=== PATIENT | male | born 1970 | race Caucasian/White ===

== ENCOUNTER 2016-12-10 09:09 | Emergency (ER) | payer OTHER ==
[2016-12-10 09:41] VITALS: BP 136/85; PULSE 66; TEMP 98.3; BMI 25.8
[2016-12-10] MEDS ORDERED: DIPHTH,PERTUSS(ACELL),TET 0.5 ML DISP.SYRIN IM ONE (10:55)
--- NOTE | 2016-12-10 11:01 | PDOC ---
History of Present Illness - General Chief Complaint: Injury Stated Complaint: LACERATION Time Seen by Provider: 12/10/16 10:03 History Source: Patient Exam Limitations: No Limitations - History of Present Illness Initial Comments: 12/10/16 10:56 CHIEF COMPLAINT: Laceration to right first and second finger. HISTORY OF PRESENT ILLNESS: Patient is an otherwise healthy 46-year-old male states that he was at work and someone was playing around with a knife and he went to back up and hit the knife sustaining a laceration to right first and second finger. Good range of motion to fingers, there is no tendon or ligament involvement, none visible , bleeding control, tetanus not up to date. 12/10/16 11:01 Occurred: reports: this morning (5:30 AM) Severity: reports: moderate Pain Location: reports: upper extremity (right first and second finger) Modifying Factors: improves with: None Associated Symptoms (Fall): denies symptoms Past History - Past Medical History Allergies/Adverse Reactions: Allergies Allergy/AdvReac Type Severity Reaction Status Date / Time No Known Allergies Allergy Verified 12/10/16 09:35 Home Medications: Ambulatory Orders Levothyroxine [Synthroid -] 150 mcg PO DAILY 12/10/16 Thyroid Disease: Yes (HYPO) - Immunization History Immunization Up to Date: Yes - Psycho/Social/Smoking Cessation Hx Suicidal Ideation: No Smoking History: Current every day smoker Number of Cigarettes Smoked Daily: 10 Information on smoking cessation initiated: No Hx Alcohol Use: Yes ("WEEKENDS") Drug/Substance Use Hx: Yes (MARIJUANA & COCAINE) Review of Systems - Review of Systems Constitutional: No: Symptoms Reported Integumentary: Yes: Other (3 cm flap laceration to the lateral right second finger just below the PIP, superficial laceration to dorsum of right first finger above the PIP). No: Erythema Neurological: No: Paresthesia, Tingling, Tremors All Other Systems: Reviewed and Negative *Physical Exam - Vital Signs Last Vital Signs Temp Pulse Resp BP Pulse Ox 98.3 F 66 17 136/85 99 12/10/16 09:35 12/10/16 09:35 12/10/16 09:35 12/10/16 09:35 12/10/16 09:35 - Physical Exam General Appearance: Yes: Appropriately Dressed. No: Apparent Distress Integumentary: positive: Other (3 cm flap laceration to the lateral right second finger just below the PIP, 2 cm superficial laceration to dorsum of right first finger above the PIP). negative: Swelling, Ecchymosis, Bruising Neurologic: positive: Alert, Normal Mood/Affect Procedures - Laceration/Wound Repair Right Finger 2nd digit Wound Length: 2.6 to 5.0 cm Wound Explored: clean Wound's Depth, Shape: linear Irrigated w/ Saline: Yes Betadine Prep: Yes Anesthesia: 1% Lidocaine Amount of Anesthetic (ccs): 4 (digital block performed with good result) Wound Repaired With: Sutures Suture Size/Type: 5:0 Number of Sutures: 6 Layer Closure: No Progress: 12/10/16 10:59 Bacitracin, Xeroform and finger splint applied Right Finger 1st digit Wound Length: to 2.5 cm Wound Explored: clean Wound's Depth, Shape: superficial Irrigated w/ Saline: Yes Wound Repaired With: Dermabond Medical Decision Making - Medical Decision Making 12/10/16 11:00 A/P: Patient here for laceration to right first and second finger, right first finger able to be derma bonded second finger sutures placed, see procedure note , boostrix given. 12/10/16 11:01 Follow-up instructions given to patient and care instructions *DC/Admit/Observation/Transfer Diagnosis at time of Disposition: Finger laceration Qualifiers: Encounter type: initial encounter Finger: index finger Damage to nail status: without damage Foreign body presence: without foreign body Laterality: right Qualified Code(s): S61.210A - Laceration without foreign body of right index finger without damage to nail, initial encounter - Discharge Dispostion Disposition: HOME Condition at time of disposition: Good Admit: No - Referrals Referrals: Rocío Christian MD [Primary Care Provider] - - Patient Instructions Additional Instructions: Keep area clean dry and intact Keep dressing on until tomorrow If any increased bleeding through the dressing return immediately to emergency department Keep area clean dry and intact bacitracin x3 days, then let it dry out Please return in 7-10 days for suture removal. Please return immediately to emergency department with any increased redness, swelling, signs of infection
== END 2016-12-10 11:11 | disposition home or self-care (01) ==
LOC: JERFT 09:09
PROC: 0HQFXZZ Repair Right Hand Skin, External Approach (ICD-10-PCS; principal; 2016-12-10)
PROC: 3E0234Z Introduction of Serum, Toxoid and Vaccine into Muscle, Percutaneous Approach (ICD-10-PCS; 2016-12-10)
DX: S61.210A Laceration without foreign body of right index finger without damage to nail, initial encounter (principal); W26.0XXA Contact with knife, initial encounter; Y93.89 Activity, other specified; Y92.9 Unspecified place or not applicable; E03.9 Hypothyroidism, unspecified; F17.210 Nicotine dependence, cigarettes, uncomplicated
CPT/HCPCS: 90715; 99282-25

== ENCOUNTER 2017-01-13 14:42 | Emergency (ER) | payer OTHER ==
[2017-01-13 14:46] VITALS: BP 131/94; PULSE 80; TEMP 99; BMI 26.6
[2017-01-13] MEDS ORDERED: SULFAMETHOXAZOLE/TRIMETHOPRIM 800MG/160MG D.S. TABLET PO ONE (15:17)
--- NOTE | 2017-01-13 15:23 | PDOC ---
Suture Removal/Wound Check HPI - History of Present Illness Chief Complaint: Suture/Staple Removal(Here) Stated Complaint: SUTURE REMOVAL Time Seen by Provider: 01/13/17 14:58 History Source: Yes: Patient Exam Limitations: Yes: No Limitations [facility] Date of Last ED visit: 12/10/16 - Previous ED Treatment Type of procedure performed on last visit: Yes: Laceration Repair Tetanus Immunization: Yes: Given at last ED visit - Onset of Previous Treatment Date of Occurence: 12/10/16 Past History - Past Medical History Allergies/Adverse Reactions: Allergies No Known Allergies Allergy (Verified 01/13/17 14:46) Home Medications: Ambulatory Orders Levothyroxine [Synthroid -] 150 mcg PO DAILY 12/10/16 Sulfamethoxazole/Trimethoprim [Bactrim Ds -] 1 tab PO BID #19 tablet 01/13/17 General: Yes: no pertinent history - Immunization History Immunizations Up to Date: Yes - Social History Smoking Status: Current every day smoker Number of Ciarettes Per Day: 6 Suture Removal/Wound Check PE - Physical Exam Laceration/Wound Check Symptoms: reports: Redness (discharge along suture line rt. index finger,) Current Severity Level: Mild (rt. index finger) Maximum Severity Level: Mild Location of Laceration/Wound: right: Finger (index finger) Comments: 01/13/17 16:17 was able to remove 6 interrupted sutures right index finger proximal palmar aspect, There was white discharged on his along lateral aspect of suture line wound edges well approximated slight erythema along edges and tenderness, wound lateral aspect is infected, cleansed wound with betadine, NS 0.9 % dried applied tiny amount of bacitracin oint, bandaid applied *Review of Systems - Review of Systems Able to Perform ROS?: Yes Constitutional: No: Symptoms Reported HEENTM: No: Symptoms Reported Respiratory: No: Symptoms reported Cardiac (ROS): No: Symptoms Reported ABD/GI: No: Symptoms Reported : No: Symptoms Reported Integumentary: Yes: Other ([address] proximal palmar index finger) Medical Decision Making - Medical Decision Making 01/13/17 16:20 01/13/17 16:21 Patient had a laceration on his right proximal palmar index finger and right dorsal thumb sustained by a knife on 12/10/2016. Patient received 6 interrupted sutures here on 12/10/2016. Patient's tetanus was updated. Patient reports that he had been busy and did not calm the have sutures taken out when he was supposed to. He also reports that he works at [employer] and does not wear gloves and fingers were not covered. There was white discharged on his along lateral aspect of suture line wound edges well approximated slight erythema along edges and tenderness, wound lateral aspect is infected. Patient reports tenderness along wound edge laterally on index finger. SUTURE REMOVAL RT. INDEX FINGER WITH WOUND INFECTION NOTED PLAN: WOUND C & S 6 interrupted sutures removed without complication or bleeding however wound does have discharge will treat with antibiotic Bactrim DS one tab now then twice a day 10 days patient given strict wound instructions *DC/Admit/Observation/Transfer Diagnosis at time of Disposition: Visit for suture removal Laceration of right hand with infection Qualifiers: Encounter type: initial encounter Qualified Code(s): S61.411A - Laceration without foreign body of right hand, initial encounter - Prescriptions Prescriptions: Sulfamethoxazole/Trimethoprim [Bactrim Ds -] 1 tab PO BID #19 tablet - Patient Instructions Additional Instructions: CLEANSE WOUND TWICE DAILY WITH ANTIBACTERIAL SOAP, PAT DRY AND APPLY TINY AMOUNT OF BACITRACIN OINTMENT COVER WITH BANDAID DURING THE DAY AIR OUT AT NIGHT RETURN TO EMERGENCY ROOM IF ANY INCREASE IN REDNESS OR SWELLING OF FINGER OR FEVER TAKE ANTIBIOTIC PRESCRIBED UNTIL FINISHED PATIENT VOICED UNDERSTANDING OF DISCHARGE INSTRUCTIONS AND ALL QUESTIONS WERE ANSWERED
[2017-01-13] MEDS ORDERED: SULFAMETHOXAZOLE/TRIMETHOPRIM 800MG/160MG D.S. TABLET ONE (15:24)
== END 2017-01-13 15:40 | disposition home or self-care (01) ==
LOC: JERFT 14:42
DX: Z48.02 Encounter for removal of sutures (principal)
CPT/HCPCS: 87070; 87205; 99281-25

== ENCOUNTER 2017-11-01 11:38 | Emergency (ER) | payer OTHER ==
--- NOTE | 2017-11-01 11:50 | PDOC ---
History of Present Illness - History of Present Illness Initial Comments: 11/01/17 11:57 Mr. Aldridge is a 47 yo male w/ pmh of hypothyroidism who presents for evaluation s /p fall earlier today. Patient reports he was at work and fell on his left side off of a 4 or 5 foot ledge. He is currently complaining of 10/10 left sided pain. Denies any LOC or hitting his head. Reports he has also noticed a bump on his right hand today as well. The patient denies chest pain, shortness of breath, headache and dizziness. Denies fever, chills, nausea, vomit, diarrhea and constipation. Denies dysuria, frequency, urgency and hematuria. Allergies: NKDA <Last Hyde - Last Filed: 11/01/17 15:43> <Adilson Kaba - Last Filed: 11/01/17 15:51> - General Stated Complaint: INJURY Time Seen by Provider: 11/01/17 11:50 Past History - Past Medical History Thyroid Disease: Yes (HYPO) - Immunization History Immunization Up to Date: Yes - Suicide/Smoking/Psychosocial Hx Smoking History: Current every day smoker Number of Cigarettes Smoked Daily: 6 Hx Alcohol Use: No Drug/Substance Use Hx: No Substance Use Type: None <Last Hyde - Last Filed: 11/01/17 15:43> <Adilson Kaba - Last Filed: 11/01/17 15:51> - Past Medical History Allergies/Adverse Reactions: Allergies Allergy/AdvReac Type Severity Reaction Status Date / Time No Known Allergies Allergy Verified 11/01/17 11:54 Home Medications: Ambulatory Orders Levothyroxine [Synthroid -] 125 mcg PO DAILY 12/10/16 Oxycodone HCl/Acetaminophen [Percocet 5-325 mg Tablet] 1 - 2 tab PO TID PRN #20 tab MDD 6 tabs 11/01/17 Review of Systems - Review of Systems Comments:: 11/01/17 12:00 GENERAL/CONSTITUTIONAL: No fever or chills. No weakness. HEAD, EYES, EARS, NOSE AND THROAT: No change in vision. No ear pain or discharge. No sore throat. CARDIOVASCULAR: No chest pain or shortness of breath RESPIRATORY: No cough, wheezing, or hemoptysis. GASTROINTESTINAL: No nausea, vomiting, diarrhea or constipation. GENITOURINARY: No dysuria, frequency, or change in urination. MUSCULOSKELETAL: +Left sided pain from fall SKIN: No rash NEUROLOGIC: No headache, vertigo, loss of consciousness, or change in strength/ sensation. ENDOCRINE: No increased thirst. No abnormal weight change HEMATOLOGIC/LYMPHATIC: No anemia, easy bleeding, or history of blood clots. ALLERGIC/IMMUNOLOGIC: No hives or skin allergy. <Last Hyde - Last Filed: 11/01/17 15:43> *Physical Exam - Physical Exam Comments: 11/01/17 12:01 GENERAL: Awake, alert, and fully oriented, in no acute distress HEAD: No signs of trauma, normocephalic, atraumatic EYES: PERRLA, EOMI, sclera anicteric, conjunctiva clear ENT: Auricles normal inspection, hearing grossly normal, nares patent, oropharynx clear without exudates. Moist mucosa NECK: Normal ROM, supple, no lymphadenopathy, JVD, or masses LUNGS: No distress, speaks full sentences, clear to auscultation bilaterally HEART: Regular rate and rhythm, normal S1 and S2, no murmurs, rubs or gallops, peripheral pulses normal and equal bilaterally. ABDOMEN: Soft, nontender, normoactive bowel sounds. No guarding, no rebound. No masses EXTREMITIES: +Left sided TTP at lower back. Mild abbrasions to right ankle and left knee not requiring dressing. SubQ nontender cyst noted to dorsum of right hand - nontender w/ maintened strength. Otherwise normal inspection, Normal range of motion, no edema. No clubbing or cyanosis. NEUROLOGICAL: Cranial nerves II through XII grossly intact. Normal speech, normal gait, no focal sensorimotor deficits SKIN: Warm, Dry, normal turgor, no rashes or lesions noted. <Last Hyde - Last Filed: 11/01/17 15:43> - Vital Signs Last Vital Signs Temp Pulse Resp BP Pulse Ox 98 F 70 18 110/85 98 11/01/17 14:48 11/01/17 14:48 11/01/17 14:48 11/01/17 14:48 11/01/17 14:48 <Adilson Kaba - Last Filed: 11/01/17 15:51> ED Treatment Course - RADIOLOGY Radiology Studies Ordered: Category Date Time Status HAND- RIGHT [RAD] Stat Radiology 11/01/17 13:09 Completed RIBS-LEFT SIDE [RAD] Stat Radiology 11/01/17 13:09 Completed - Medications Given in the ED: ED Medications Discontinued Medications Generic Name Dose Route Start Last Admin Trade Name Freq PRN Reason Stop Dose Admin Ibuprofen 800 mg 11/01/17 11:56 11/01/17 12:00 Motrin - PO 11/01/17 11:57 800 mg ONCE ONE Administration Oxycodone/Acetaminophen 2 combo 11/01/17 13:09 11/01/17 13:20 Percocet 5/325 - PO 11/01/17 13:10 2 combo ONCE ONE Administration <Adilson Kaba - Last Filed: 11/01/17 15:51> Medical Decision Making - Medical Decision Making 11/01/17 15:37 Mr. Aldridge is a 47 yo male w/ pmh of hypothyroidism who presents for evaluation post fall today at work. Patient pain controlled with motrin 800. Rib XR, T/L/S spine XR sent for evaluation (all negative). Discharging to home w/ percocet for pain control. Patient will f/u with PCP for further evaluation as needed. <Last Hyde - Last Filed: 11/01/17 15:43> *DC/Admit/Observation/Transfer <Last Hyde - Last Filed: 11/01/17 15:43> <Adilson Kaba - Last Filed: 11/01/17 15:51> Diagnosis at time of Disposition: Fall Qualifiers: Encounter type: initial encounter Qualified Code(s): W19.XXXA - Unspecified fall, initial encounter - Discharge Dispostion Disposition: HOME - Prescriptions Prescriptions: Oxycodone HCl/Acetaminophen [Percocet 5-325 mg Tablet] 1 - 2 tab PO TID PRN #20 tab MDD 6 tabs PRN Reason: Pain - Patient Instructions Printed Discharge Instructions: DI for Blunt Trauma Additional Instructions: Please follow-up with primary care provider early next week for continued pain. Return to ER if any difficulty breathing, fever, chills, pain not controllable with proscribed medications, or other concerning symptoms. Take all medications as proscribed and take over the counter ibuprofen or tylenol for baseline pain control.
[2017-11-01 11:54] VITALS: BMI 27.0
[2017-11-01] MEDS ORDERED: IBUPROFEN 400 MG TABLET (FP) PO ONE ×2 (11:56→11:59)
--- NOTE | 2017-11-01 13:14 | PDOC ---
Attending Attestation - Resident Resident Name: Art Hydeorn - ED Attending Attestation I have performed the following: I have examined & evaluated the patient, The case was reviewed & discussed with the resident, I agree w/resident's findings & plan - HPI HPI: 11/01/17 13:11 Healthy 47-year-old male presents with accidental fall from a 4 foot ladder, slightly caught his fall and landed on his left back/RIBS striking the floor. No head injury or loss of consciousness, complaining of left lower rib pain worse with positional changes and deep inspiration. Also notes a right hand soft tissue swelling but no pain or motor or sensory deficit. - Physicial Exam PE: 11/01/17 13:12 Vital signs are normal Trauma exam is nonfocal except for: Right hand: There is a subcutaneous cyst between the first and second metacarpals which is mobile and nontender, there is no focal bony tenderness or deformity, he has full range of motion with full strength, he is neurovascularly intact. Chest: Symmetric breath sounds with some atelectasis at the left base. There is tenderness to palpation along the posterior and lateral aspect of ribs 9 through 11, no crepitus or obvious bruising or lacerations. There is a very superficial abrasion to his left forearm without laceration, no bony tenderness and neurovascularly intact Pelvis is stable - Medical Decision Making 11/01/17 13:13 47-year-old male with mechanical fall, left mid back/rib injury, rule out rib fracture, rule out pneumothorax. Neurologically intact. Right hand is unlikely related to this fall, we'll image to rule out injury, possible strain or tendon tear. Right hand x-ray Left rib series Spine imaging Pain control Reassess
[2017-11-01 14:49] VITALS: BP 110/85; PULSE 70; TEMP 98
== END 2017-11-01 15:59 | disposition home or self-care (01) ==
LOC: JER 11:38
DX: S29.8XXA Other specified injuries of thorax, initial encounter (principal); S80.212A Abrasion, left knee, initial encounter; S90.511A Abrasion, right ankle, initial encounter; W17.89XA Other fall from one level to another, initial encounter; Y93.89 Activity, other specified; Y92.69 Other specified industrial and construction area as the place of occurrence of the external cause; Y99.0 Civilian activity done for income or pay; E03.9 Hypothyroidism, unspecified
CPT/HCPCS: 71101-TC-FY; 72070-TC-FY; 72100-TC-FY; 73130-TC-RT-FY; 99282-25